=== PATIENT | female | born 1945 | race Caucasian/White ===

== ENCOUNTER → 2016-07-27 | Day surgery (SDC) | payer MEDICARE, BC ==
[~2016-07-27] VITALS: Ht 161.3 cm; Wt 67.1 kg
[2016-07-27] VITALS (7 sets, daily range): BP systolic 130–142; BP diastolic 70–81
[~2016-07-27] MED LIST: ACCOLATE20 M1 ORAL; ASPIRIN81 MG ORAL; Akten 3.5% 1ml Btl RIGHT EYE SCH; BSS 15ml BTL ONE; BSS 500ml btl ONE; CALCIUM500 M2 PO; DOCUSATE SODIU100 MG ORAL; Dexamethasone 4mg/ml vial ONE; Diclofenac Sod 0.1% Op Soln RIGHT EYE SCH; DiphenhydrAMINE 50mg/ml Inj IVP PRN; EPINEPHrine 1mg/1ml Amp ONE; Gatifloxacin Opth Solution 0.5% RIGHT EYE SCH; LEVOTHYROXINE50 MCG ORAL; LR 1000ml 1,000 ML IVLG SCH; LR 1000ml ONE; LYSINE1000 MG PO; Labetalol 5mg/ml 20ml vial IV PRN; Lidocaine 1% MPF 10mg/ml 5ml ONE; Midazolam 2mg/2ml Inj ONE; Phenylephrine 2.5% Op Soln RIGHT EYE SCH; Povidone-Iodine 5% opth solution ONE; Sodium Hyaluronate 14 mg/ml 0.85ml ONE; Tobradex Opth Susp 2.5ml RIGHT EYE SCH; Tropicamide 1% Opth Soln RIGHT EYE SCH; VITAMIN B COMP1 EAC7 PO; VITAMIN D1000 UNI1 ORAL; ZYRTEC10 MG ORAL; [UNRECOGNIZED DRUG - OTHER] PO
--- NOTE | 2016-07-27 07:41 | Pre-Procedure Note/Attestation ---
Pre-Procedure Note/Attestation Complete Prior to Procedure Planned Procedure: right Procedure Narrative: cataract extraction with implant right eye Indications for Procedure Pre-Operative Diagnosis: cataract right eye Attestation I attest that I discussed the nature of the procedure; its benefits; risks and complications; and alternatives (and the risks and benefits of such alternatives ), prior to the procedure, with the patient (or the patient's legal traffic representative). I attest that, if there was a reasonable possibility of needing a blood transfusion, the patient (or the patient's legal traffic representative) was given the [facility] standardized written summary, pursuant to the [place] Blood Safety Act ([place] Health and Safety Code # 1645, as amended). I attest that I re-evaluated the patient just prior to the surgery and that there has been no change in the patient's H&P, except as documented below: ASHLEY RODRIGUEZ Jul 27, 2016 07:41
--- NOTE | 2016-07-27 08:34 | Anethesia Preoperative Eval ---
Anesthesia Pre-op PMH/ROS General Date of Evaluation: Jul 27, 2016 Anesthesiologist: Jose Mallampati Score Class I : Soft palate, uvula, fauces, pillars visible Class II: Soft palate, uvula, fauces visible Class III: Soft palate, base of uvula visible Class IV: Only hard plate visible Mallampati Classification: Class II Surgeon: Gage Diagnosis: Right catarct Surgical Procedure: Right cataract extraction with IOL Anesthesia History: none Family History: no anesthesia problems Allergies: Coded Allergies: WHEAT (Verified Allergy, Severe, GI Upset , 07/27/16) VITAMIN E (D-ALPHA TOCOPHEROL) (Verified Allergy, Unknown, 07/26/16) Medications: see eMAR Past Medical History Cardiovascular: Reports: HTN, Denies: CAD, [place], arrhythmia, other, valve dz Pulmonary: Reports: asthma, Denies: COPD, AGA, other Gastrointestinal/Genitourinary: Reports: GERD, Denies: CRI, ESRD, other Neurologic/Psychiatric: Reports: depression/anxiety, Denies: CVA, TIA, dementia, other Endocrine: Reports: hypothyroidism, Denies: DM, other, steroids HEENT: Reports: cataract (L), cataract (R), Denies: [place] (L), [place] (R), glaucoma, other Hematology/Immune: Denies: DVT, anemia, bleeding disorder, other Musculoskeletal/Integumentary: Reports: OA, Denies: DDD, DJD, RA, edema, other PSxH Narrative: T&A, bilateral breast lift, parathyroidectomy Anesthesia Pre-op Phys. Exam Physician Exam see chart Constitutional: NAD Cardiovascular: RRR Respiratory: CTA Airway Exam Mallampati Score: Class II MO: full ROM: full Anesthesia Pre-op A/P Labs see chart Studies Pre-op Studies: EKG - sr Risk Assessment & Plan Assessment: ASA II Plan: MAC Status Change Before Surgery: No Pre-Antibiotics Drug: N/A MADONNA ARZATE M.D. Jul 27, 2016 08:34
--- NOTE | 2016-07-27 09:18 | 48 Hour Post Anesthesia Eval ---
Post Anesthesia Evaluation Procedure: Right cataract extraction with IOL Date of Evaluation: Jul 27, 2016 Blood Pressure Systolic: 122 0: 78 Pulse Rate: 81 Respiratory Rate: 16 O2 Sat by Pulse Oximetry: 100 Airway: patent Nausea: No Vomiting: No Pain Intensity: 0 Hydration Status: adequate Cardiopulmonary Status: at baseline Mental Status/LOC: patient returned to baseline Post-Anesthesia Complications: 0 Follow-up care needed: ready to discharge MADONNA ARZATE M.D. Jul 27, 2016 09:18
--- NOTE | 2016-07-27 09:18 | Immediate Post-Op Evaluation ---
Immediate Post-Op Evalulation Immediate Post-Op Evalulation Procedure: Right cataract extraction with IOL Date of Evaluation: Jul 27, 2016 Time of Evaluation: 11:04 IV Fluids: 200 Blood Products: 0 Estimated Blood Loss: 0 Urinary Output: 0 Blood Pressure Systolic: 137 Blood Pressure Diastolic: 74 Pulse Rate: 84 Respiratory Rate: 16 O2 Sat by Pulse Oximetry: 99 Temperature (Fahrenheit): 98.1 Pain Score (1-10): 0 Nausea: No Vomiting: No Complications 0 Patient Status: awake, reacts, patent, none Hydration Status: adequate Drug: N/A MADONNA ARZATE M.D. Jul 27, 2016 09:18
--- NOTE | 2016-07-27 10:59 | Brief Operative Note ---
Immediate Post Operative Note Operative Note Pre-op Diagnosis: cataract right eye Procedure: phacoemulsification of cataract with implant right eye Post-op Diagnosis: same as pre-op Surgeon: ashley lal Director Technical: none Anesthesiologist: stevenson becerra Anesthesia: MAC Specimen: none Complications: none Condition: stable Estimated Blood Loss: none Drains: none Implant(s) used?: Yes ASHLEY LAL Jul 27, 2016 10:59
--- NOTE | 2016-07-27 17:08 | Operative Note - Dictated ---
DATE OF OPERATION: 07/27/2016 PREOPERATIVE DIAGNOSIS: Cataract, right eye. POSTOPERATIVE DIAGNOSIS: Cataract, right eye. PROCEDURE: Phacoemulsification cataract right eye with placement of posterior chamber intraocular lens. . SURGEON: Efren Will M.D. ([facility] [place]) BUSINESS BANKING MANAGER: None. ANESTHESIA: MAC/topical. ANESTHESIOLOGIST: Dr. Lien Antonio INDICATION FOR PROCEDURE: Poor vision, right eye. DESCRIPTION OF FINDINGS: Nuclear sclerotic and cortical cataract, right eye. DESCRIPTION OF PROCEDURE: The patient received a topical anesthetic block consisting of 3.5% Akten eye drops. The eye was then prepped and draped in the usual manner. A lid speculum was placed. An operating Zeiss microscope was positioned. The temporal corneal groove was made with a shalonda blade. A SuperSharp blade made a stab incision at the 12 o'clock position. A 0.1 mL of 1% nonpreserved intracameral lidocaine was injected. Healon was instilled into the anterior chamber and 2.5/2.8 mm trapezoidal shalonda blade was used to complete the temporal corneal wound. A cystotome was used to create an anterior capsular flap. Utrata forceps were used to complete the capsulorrhexis. BSS on a cannula was used to hydrodissect the nucleus. The lens nucleus was phacoemulsified in a phaco-fracture technique. Remaining cortical material was removed with I/A and the posterior capsule polished with the I/A on Cap vac. Healon was reinstilled into the capsular bag and anterior chamber, and an Moody foldable one-piece posterior chamber intraocular lens, model ZCB00, power 27.0 diopter, serial [id number] was placed in the injector. The lens was put into the capsular bag. The I/A tip was used to remove the Healon and position the lens. The wound edge was hydrated with BSS and a blunt-tipped cannula. The wound was checked and found to be watertight. The lid speculum was removed and a drop of TobraDex and Zymaxid was placed. A clear plastic shield was taped over the eye. The patient tolerated procedure well and left the operating room in good condition. Efren Will M.D. ([facility] [place]) DR: Alicia JOB#: [id number] CC:
== END | disposition home or self-care (01) ==
LOC: SUR 07:42
DX: H25.11 Age-related nuclear cataract, right eye (principal); H25.011 Cortical age-related cataract, right eye; E03.9 Hypothyroidism, unspecified; G47.30 Sleep apnea, unspecified; K21.9 Gastro-esophageal reflux disease without esophagitis; M19.90 Unspecified osteoarthritis, unspecified site; I10 Essential (primary) hypertension; J45.909 Unspecified asthma, uncomplicated; G47.00 Insomnia, unspecified; F32.0 Major depressive disorder, single episode, mild; F41.9 Anxiety disorder, unspecified; E89.2 Postprocedural hypoparathyroidism; Z88.8 Allergy status to other drugs, medicaments and biological substances; Z91.018 Allergy to other foods; Z79.82 Long term (current) use of aspirin; Z79.899 Other long term (current) drug therapy
CPT/HCPCS: 66984; J0171; J1100; J1200; J2250; J7120; V2632; 94003; 94150

== ENCOUNTER → 2016-09-14 | Day surgery (SDC) | payer MEDICARE, BC ==
[~2016-09-14] VITALS: Ht 161.3 cm; Wt 66.2 kg
[2016-09-14] VITALS (7 sets, daily range): BP systolic 109–131; BP diastolic 67–81
[~2016-09-14] MED LIST changes: -Akten 3.5% 1ml Btl RIGHT EYE SCH; +Carbachol 0.01% Op Soln 1.5ml vial ONE; -Diclofenac Sod 0.1% Op Soln RIGHT EYE SCH; +DiphenhydrAMINE 50mg/ml Inj ONE; -Gatifloxacin Opth Solution 0.5% RIGHT EYE SCH; +NS Irrig 1000ml ONE; -Phenylephrine 2.5% Op Soln RIGHT EYE SCH; +Sterile Water Irrig 1000ml IRRIG ONE; -Tobradex Opth Susp 2.5ml RIGHT EYE SCH; -Tropicamide 1% Opth Soln RIGHT EYE SCH; +acetaZOLAMIDE 125mg tab ONE; +fentaNYL 100 mcg/2 mL IV ONE
[2016-09-14] MEDS: Phenylephrine 2.5% Op Soln LEFT EYE SCH ×3 (07:04→07:23)
[2016-09-14] MEDS: Gatifloxacin Opth Solution 0.5% LEFT EYE SCH ×3 (07:05→07:24)
[2016-09-14] MEDS: Tropicamide 1% Opth Soln LEFT EYE SCH ×3 (07:05→07:24)
[2016-09-14] MEDS: Diclofenac Sod 0.1% Op Soln LEFT EYE SCH ×3 (07:06→07:23)
[2016-09-14] MEDS: Tobradex Opth Susp 2.5ml LEFT EYE SCH ×3 (07:08→07:24)
[2016-09-14] MEDS: Akten 3.5% 1ml Btl LEFT EYE SCH ×3 (07:08→07:25)
--- NOTE | 2016-09-14 07:21 | Anethesia Preoperative Eval ---
Anesthesia Pre-op PMH/ROS General Date of Evaluation: Sep 14, 2016 Anesthesiologist: Jose Mallampati Score Class I : Soft palate, uvula, fauces, pillars visible Class II: Soft palate, uvula, fauces visible Class III: Soft palate, base of uvula visible Class IV: Only hard plate visible Mallampati Classification: Class II Surgeon: Suman Diagnosis: Left cataract Surgical Procedure: Left cataract extraction with IOL Anesthesia History: none Family History: no anesthesia problems Allergies: Coded Allergies: WHEAT (Verified Allergy, Severe, GI Upset , 07/27/16) VITAMIN E (D-ALPHA TOCOPHEROL) (Verified Allergy, Unknown, 07/26/16) Medications: see eMAR Past Medical History Cardiovascular: Reports: HTN, Denies: CAD, [place], arrhythmia, other, valve dz Pulmonary: Reports: asthma, Denies: COPD, AGA, other Gastrointestinal/Genitourinary: Reports: GERD, Denies: CRI, ESRD, other Neurologic/Psychiatric: Reports: dementia - mild, depression/anxiety, Denies: CVA, TIA, other Endocrine: Reports: hypothyroidism, Denies: DM, other, steroids HEENT: Denies: [place] (L), [place] (R), cataract (L), cataract (R), glaucoma, other Hematology/Immune: Denies: DVT, anemia, bleeding disorder, other Musculoskeletal/Integumentary: Reports: OA, Denies: DDD, DJD, RA, edema, other PSxH Narrative: bilateral eye sx, T&A, bilateral breast lift, parathyroidectomy Anesthesia Pre-op Phys. Exam Physician Exam Last Vital Signs Date Time Temp Pulse Resp B/P Pulse Ox O2 Delivery O2 Flow Rate FiO2 09/14/16 07:02 98.3 76 18 109/76 99 Room Air Constitutional: NAD Cardiovascular: RRR Respiratory: CTA Airway Exam Mallampati Score: Class II Anesthesia Pre-op A/P Labs see chart Studies Pre-op Studies: EKG - sr Risk Assessment & Plan Assessment: ASA II Plan: MAC Status Change Before Surgery: No Pre-Antibiotics Drug: N/A MADONNA ARZATE M.D. Sep 14, 2016 07:21
--- NOTE | 2016-09-14 07:22 | Immediate Post-Op Evaluation ---
Immediate Post-Op Evalulation Immediate Post-Op Evalulation Procedure: Left cataract extraction with IOL Date of Evaluation: Sep 14, 2016 IV Fluids: 300 Blood Products: 0 Estimated Blood Loss: 0 Urinary Output: 0 Blood Pressure Systolic: 130 Blood Pressure Diastolic: 75 Pulse Rate: 82 Respiratory Rate: 16 O2 Sat by Pulse Oximetry: 100 Temperature (Fahrenheit): 97.1 Pain Score (1-10): 0 Nausea: No Vomiting: No Complications 0 Patient Status: awake, reacts, patent, none Hydration Status: adequate Drug: N/A MADONNA ARZATE M.D. Sep 14, 2016 07:22
--- NOTE | 2016-09-14 07:23 | 48 Hour Post Anesthesia Eval ---
Post Anesthesia Evaluation Procedure: Left cataract extraction with IOL Date of Evaluation: Sep 14, 2016 Blood Pressure Systolic: 122 0: 81 Pulse Rate: 79 Respiratory Rate: 16 O2 Sat by Pulse Oximetry: 100 Airway: patent Nausea: No Vomiting: No Pain Intensity: 0 Hydration Status: adequate Cardiopulmonary Status: at baseline Mental Status/LOC: patient returned to baseline Post-Anesthesia Complications: 0 Follow-up care needed: ready to discharge MADONNA ARZATE M.D. Sep 14, 2016 07:23
--- NOTE | 2016-09-14 07:47 | Pre-Procedure Note/Attestation ---
Pre-Procedure Note/Attestation Complete Prior to Procedure Planned Procedure: left Procedure Narrative: cataract extraction with implant left eye Indications for Procedure Pre-Operative Diagnosis: cataract left eye Attestation I attest that I discussed the nature of the procedure; its benefits; risks and complications; and alternatives (and the risks and benefits of such alternatives ), prior to the procedure, with the patient (or the patient's legal human resources representative). I attest that, if there was a reasonable possibility of needing a blood transfusion, the patient (or the patient's legal human resources representative) was given the [facility] standardized written summary, pursuant to the [place] Blood Safety Act ([place] Health and Safety Code # 1645, as amended). I attest that I re-evaluated the patient just prior to the surgery and that there has been no change in the patient's H&P, except as documented below: ASHLEY RODRIGUEZ Sep 14, 2016 07:47
--- NOTE | 2016-09-14 08:52 | Brief Operative Note ---
Immediate Post Operative Note Operative Note Pre-op Diagnosis: cataract left eye Procedure: phacoemulsification of cataract with implant left eye Post-op Diagnosis: same as pre-op Surgeon: ashley lal Acid Tender: none Anesthesiologist: stevenson becerra Anesthesia: MAC Specimen: none Complications: none Condition: stable Estimated Blood Loss: none Drains: none Implant(s) used?: Yes ASHLEY LAL Sep 14, 2016 08:52
--- NOTE | 2016-09-14 16:18 | Operative Note - Dictated ---
DATE OF OPERATION: 09/14/2016 PREOPERATIVE DIAGNOSIS: Cataract, left eye. POSTOPERATIVE DIAGNOSIS: Cataract, left eye. PROCEDURE: Phacoemulsification of cataract, left eye, with placement of posterior chamber intraocular lens. SURGEON: Efren Will M.D. ([facility] [place]) SENIOR MATERIALS PLANNER: None. ANESTHESIA: MAC/topical. ANESTHESIOLOGIST: Lien Antonio M.D. INDICATION FOR PROCEDURE: Poor vision, left eye. DESCRIPTION OF FINDINGS: Nuclear sclerotic cataract, left eye. DESCRIPTION OF PROCEDURE: The patient received a topical anesthetic block consisting of 3.5% Akten eye drops. The eye was then prepped and draped in the usual manner. A lid speculum was placed and an operating Zeiss microscope was positioned. A temporal corneal groove was then made with a shalonda blade. A SuperSharp blade made a stab incision at the 6 o'clock position. A 0.1 mL of 1% non-preservative intracameral lidocaine was injected. Healon was instilled into the anterior chamber. A 2.5/2.8 mm trapezoidal shalonda blade was used to complete the temporal corneal wound. A cystotome was used to create an anterior capsular flap. Utrata forceps were used to complete the capsulorrhexis. BSS on a cannula was used to hydrodissect the nucleus. The lens nucleus was phacoemulsified in a phaco-fracture technique. The remaining cortical material was removed with the I/A and the posterior capsule was polished with the I/A on Cap vac. Healon was reinstilled in the capsular bag and the anterior chamber, and an Moody foldable one-piece posterior intraocular lens, model ZCB00, power 26.0 diopter, serial #[id number] was placed in the injector. The lens was put in the capsular bag. The I/A tip was used to remove the Healon and position the lens. The wound edge was hydrated with BSS and a blunt-tipped cannula. The wound was checked and found to be watertight. The lid speculum was removed, and a drop of TobraDex and Zymaxid was placed. A clear plastic shield was taped over the eye. The patient tolerated the procedure well and left the operating room in good condition. Efren Will M.D. ([facility]) DR: RENZO JOB#: [id number] CC: Adela Diaz M.D.
== END | disposition home or self-care (01) ==
LOC: SUR 06:32
DX: H25.12 Age-related nuclear cataract, left eye (principal); I10 Essential (primary) hypertension; Z91.048 Other nonmedicinal substance allergy status; Z91.018 Allergy to other foods; J45.909 Unspecified asthma, uncomplicated; F03.90 Unspecified dementia, unspecified severity, without behavioral disturbance, psychotic disturbance, mood disturbance, and anxiety; E03.9 Hypothyroidism, unspecified; M19.90 Unspecified osteoarthritis, unspecified site; G47.30 Sleep apnea, unspecified; Z79.82 Long term (current) use of aspirin
CPT/HCPCS: 66984; J0171; J1100; J1200; J2250; J3010; J7120; V2632; 94003; 94150